=== PATIENT | female | born 1990 | race Caucasian/White ===

== ENCOUNTER 2024-07-26 01:04 | Inpatient (IN) | payer MEDICAID ==
[~2024-07-26] VITALS: Ht 149.9 cm; Wt 87.0 kg
[2024-07-26] VITALS (9 sets, daily range): BP systolic 102–179; BP diastolic 58–91; PULSE 50–71; RESP 16–22; TEMP 97.1–98.7; O2SAT 93–98
[2024-07-26 02:15] LABS: Basophils # (auto) 0.1 10 ^3/uL (0-0.2); Basophils % (auto) 0.3 % (0.0-2.0); Eosinophils # (auto) 0.1 10 ^3/uL (0-0.8); Eosinophils % (auto) 0.4 % (0.0-7.0); Hematocrit 39.6 % (36.0-46.0); Hemoglobin 13.7 g/dL (12.2-16.2); Lymphocytes # (auto) 1.2 10 ^3/uL (0.4-5.4); Lymphocytes % (auto) 7.7 % (10.0-50.0); Mean Corpuscular Hemoglobin 28.8 pg (28.0-32.0); Mean Corpuscular Hgb Conc. 34.7 g/dL (32.0-36.0); Mean Corpuscular Volume 83.2 fL (80.0-100.0); Monocytes # (auto) 0.9 10 ^3/uL (0-1.3); Monocytes % (auto) 5.5 % (0.0-12.0); Neutrophils # (auto) 13.8 10 ^3/uL (1.6-8.6); Neutrophils % (auto) 86.1 % (37.0-80.0); Platelet Count (auto) 430 10^3/uL (140-450); Red Blood Cells 4.76 10^6/uL (4.0-5.20); White Blood Cell 16.1 10^3/uL (4.4-10.8)
[2024-07-26 02:33] LABS: Alanine Aminotransferase 17 U/L (7-40); Albumin 4.8 g/dL (3.2-4.8); Alkaline Phosphatase 97 U/L (46-116); Anion Gap 11 (5-15); Aspartate Aminotransferase 14 U/L (13-40); BUN/Creatinine Ratio 10.2 (10.0-20.0); Blood Urea Nitrogen 13 mg/dL (9-23); Calcium 10.1 mg/dL (8.7-10.4); Carbon Dioxide 24 mmol/L (20-31); Chloride 102 mmol/L (98-107); Glucose 151 mg/dL (74-106); Lipase 30 U/L (12-53); Potassium 3.8 mmol/L (3.5-5.1); Sodium 137 mmol/L (136-145)
[2024-07-26 02:34] LABS: Bilirubin, Total 0.7 mg/dL (0.2-1.0)
[2024-07-26] MEDS: MORPHINE SULFATE INJ 2 MG/ml SYRG IV ONE ×2 (02:41→04:35)
[2024-07-26] MEDS: ONDANSETRON HCL 4 MG/2 ML VIAL IV ONE (02:42)
[2024-07-26 03:09] LABS: Amphetamine Screen, Urine Pos (NEGATIVE); Barbiturate Scree,Urine Neg (NEGATIVE); Benzodiazephine Screen, Urine Neg (NEGATIVE); Cannabinoid Screen, Urine Pos (NEGATIVE); Cocaine Screen, Urine Neg (NEGATIVE); Opiate Scree,Urine Neg (NEGATIVE); Phencyclidine Screen, Urine Neg (NEGATIVE)
[2024-07-26 03:17] LABS: Urine Bacteria FEW /hpf (None Seen); Urine Blood 1+ /uL (Negative); Urine Clarity Clear (Clear); Urine Color Light-Yellow (Yellow); Urine Mucus FEW (None Seen); Urine Protein, UAD Negative (Negative); Urine Squamous Epithelial Cell FEW /hpf (<5); Urine Urobilinogen Normal (Negative); Urine WBC 5 /HPF (0-5)
--- NOTE | 2024-07-26 03:48 | DVH ---
Exam: CT CT AB PEL WO CON-NO ORAL OR IV History: LLQ abd px Comparison Study: None Technique: Multidetector spiral CT of the abdomen was performed from lung bases to pubic symphysis. I maging was performed without IV contrast. Axial, coronal and sagittal multiplanar reformats were obta ined from the axial data set by the technologist. Radiation Dose : 1. Abdomen/Pelvis: CTDIvol 20.1 mGy, DLP 1119.46 mGy*cm. Findings: Evaluation of solid organs is limited due to lack of intravenous contrast use. Lung Bases: No acute or significant lung base finding. Normal heart size. No pleural or pericardial effusion. Liver: The liver is normal in size. No focal lesions. Gallbladder and Biliary Tree: Unremarkable Spleen: Unremarkable Pancreas: The pancreas is grossly normal in appearance. Adrenal Glands: Unremarkable Kidneys: Moderate right hydronephrosis and hydroureter secondary to a partially obstructing distal ur eteral calculus measuring 0.5 cm just proximal to the level of the ureterovesicular junction. The lef t kidney is normal in appearance. Bladder: Grossly unremarkable for degree of distention. Bowel: The stomach is grossly normal in appearance. Small bowel and colon are normal in caliber and d istribution. The appendix is not visualized; however, no secondary findings of acute appendicitis kvng ntified. Ascites: Absent Lymphadenopathy: No mesenteric, retroperitoneal or periportal lymphadenopathy. Abdominal Wall and Mesentery: Unremarkable. Vasculature: The visualized abdominal aorta is normal in size and caliber. Evaluation of abdominal a nd pelvic vessels is limited due to lack of intravenous contrast. Pelvic Organs: Unremarkable Musculoskeletal: No aggressive focal bony lesions, acute fractures or dislocation. IMPRESSION: 1. Moderate right hydroureteronephrosis secondary to a partially obstructing distal ureteral calculus just proximal to the level of the ureterovesicular junction. Radiation optimization: All CT scans at this facility use at least one of these dose optimization juan hniques: automated exposure control mA and/or kV adjustment per patient size (includes targeted exam s where dose is matched to clinical indication) or iterative reconstruction.
--- NOTE | 2024-07-26 03:50 | ED.PDOC ---
General HPI Comments THIS IS A 34-YEAR-OLD FEMALE BROUGHT IN BY EMS WITH CHIEF COMPLAINT ABDOMINAL PAIN. PATIENT STATES SUDDEN ONSET OF ABDOMINAL PAIN WHILE SHE WAS OUT HER FAMILY SHE PULLED OVER ON THE SIDE OF THE ROAD AND CALLED 911 SHE WAS BROUGHT IN BY EMS. PATIENT REPORTS LEFT LOWER QUADRANT ABDOMINAL PAIN 10/10 ON PAIN SCALE ALONG WITH NAUSEA AND VOMITING DESCRIBES PAIN SHARP SHOOTING RADIATING INTO HER LEFT LOWER BACK. SHE DENIES CHEST PAIN, DIFFICULTY BREATHING, SHORTNESS OF BREATH, DIARRHEA, RECENT TRAVEL OR RECENT ILL CONTACTS. Chief Complaint: Abdominal Pain Time Seen by MD: 01:34 Reviewed notes: Nurses Notes, Medications, Allergies Allergies: Coded Allergies: NO KNOWN ALLERGIES (Unverified , 07/26/24) Information Source: Patient Mode of Arrival: EMS Past Medical History PAST MEDICAL HISTORY: Denies Surgical History: Denies all surgeries PE MANAGER History: No Pertinent PE MANAGER History Family History Family History: Unknown Social History Smoker: Non-Smoker Alcohol: Denies ETOH Use Drugs: Denies Drug Use, Marijuana Constitutional: denies: chills, diaphoresis, fatigue, fever, malaise, sweats, weakness, others EENTM: denies: blurred vision, double vision, ear bleeding, ear discharge, ear drainage, ear pain, ear ringing, eye pain, eye redness, hearing loss, mouth pain, mouth swelling, nasal discharge, nose bleeding, nose congestion, nose pain, photophobia, tearing, throat pain, throat swelling, voice changes, others Respiratory: denies: cough, hemoptysis, orthopnea, SOB at rest, shortness of breath, SOB with excertion, stridor, wheezing, others Cardiovascular: denies: chest pain, dizzy spells, diaphoresis, Dyspnea on exertion, edema, irregular heart beat, left arm pain, lightheadedness, palp itations, PND, syncope, others Gastrointestinal: reports: abdominal pain, nausea, vomiting; denies: abdomen distended, blood streaked bowels, constipated, diarrhea, dysphagia, difficulty swallowing, hematemesis, melena, poor appetite, poor fluid intake, rectal bleeding, rectal pain, others Genitourinary: denies: abnormal vagina bleeding, burning, dyspareunia, dysuria, flank pain, frequency, hematuria, incontinence, pain, , vagina discharge, urgency, others Neurological: denies: dizziness, fainting, headache, left sided numbness, left sided weakness, numbness, paresthesia, pre-existing deficit, right sided numbness, right sided weakness, seizure, speech problems, tingling, tremors, weakness, others Musculoskeletal: denies: back pain, gout, joint pain, joint swelling, muscle pain, muscle stiffness, neck pain, others Integumetry: denies: bruises, change in color, change in hair/nails, dryness, laceration, lesions, lumps, rash, wounds, others Allergic/Immunocompromised: denies: Difficulty Healing, Frequent Infections, Hives, Itching, others Hematologic/Lymphatic: denies: anemia, blood clots, easy bleeding, easy bruising, swollen glands, others Endocrine: denies: excessive hunger, excessive sweating, excessive thirst, excessive urination, flushing, intolerance to cold, intolerance to heat, unexplained weight gain, unexplained weight loss, others Psychiatric: denies: anxiety, bipolar disorder, depression, hopeless, panic disorder, schizophrenia, sleepless, suicidal, others Physical Exam General Appearance: No Apparent Distress, Normal HEENT: Normal ENT Inspection, Pharynx Normal Neck: Full Range of Motion, Non-Tender Respiratory: Chest Non-Tender, Lungs Clear, No Accessory Muscle Use, No Respiratory Distress, Normal Breath Sounds Cardiovascular: No Edema, No JVD, No Murmur, No Gallop, Normal Peripheral Pulses, Regular Rate/Rhythm Breast Exam: Deferred Gastrointestinal: No Organomegaly, No Pulsatile Mass, Normal Bowel Sounds, Soft, Tenderness (MODERATE TENDERNESS PALPATED LEFT LOWER QUADRANT ABDOMEN WITHOUT REBOUND TENDERNESS) Genitalia: Deferred Pelvic: Deferred Rectal: Deferred Extremities: No calf tenderness, Normal capillary refill, Normal inspection, Normal range of motion, Non-tender, No pedal edema Musculoskeletal : Apperance: Normal Neurologic: Alert, retail sales merchandiser development II-XII nml as Tested, No Motor Deficits, Normal Affect, Normal Mood, No Sensory Deficits Cerebellar Function: Normal Reflexes: Normal Skin: Dry, Normal Color, Warm Lymphatic: No Adenopathy Was a procedure done? Was a procedure done?: No Differential Diagnosis Kidney stone (Female): Appendicitis, Bowel obstruction, Cholelithiasis, Pancreatitis, Urolithiasis X-Ray, Labs, Meds, VS Vital Signs Date Time Temp Pulse Resp B/P (MAP) Pulse Ox O2 Delivery O2 Flow Rate FiO2 07/26/24 03:26 60 13 141/73 07/26/24 02:41 78 12 153/97 07/26/24 02:20 60 22 100 Room Air 07/26/24 02:20 98.3 60 22 168/95 (119) 100 98.3 07/26/24 01:04 98.3 60 22 168/95 (119) 100 98.3 Lab Test 07/26/24 02:30 07/26/24 02:04 Range/Units Urine Color Light-yellow Yellow Urine Clarity Clear Clear Urine pH 8.0 5.0-9.0 Urine Specific [place] 1.020 1.001-1.035 Urine Protein Negative Negative Urine Ketones 3+ H Negative Urine Blood 1+ H Negative /uL Urine Nitrite Negative Negative Urine Bilirubin Negative Negative Urine Urobilinogen Normal Negative mg/dL Urine Leukocyte Esterase 2+ Negative /uL Urine RBC 22 0 - 4 /hpf Urine Microscopic WBC 5 0-5 /HPF Urine Squamous Epithelial Cells Few <5 /hpf Urine Bacteria Few H None Seen /hpf Urine Mucus Few None Seen Urine Glucose Normal Normal mg/dL Urine Test Negative Negative Urine Opiates Screen Neg NEGATIVE Urine Fentanyl Screen Neg NEGATIVE Urine Barbiturates Screen Neg NEGATIVE Urine Phencyclidine Screen Neg NEGATIVE Urine Amphetamines Screen Pos NEGATIVE Urine Benzodiazepines Screen Neg NEGATIVE Urine Cocaine Screen Neg NEGATIVE Urine Cannabinoids Screen Pos NEGATIVE White Blood Count 16.1 H 4.4-10.8 10^3/uL Red Blood Count 4.76 4.0-5.20 10^6/uL Hemoglobin 13.7 12.2-16.2 g/dL Hematocrit 39.6 36.0-46.0 % Mean Corpuscular Volume 83.2 80.0-100.0 fL Mean Corpuscular Hemoglobin 28.8 28.0-32.0 pg Mean Corpuscular Hemoglobin Concent 34.7 32.0-36.0 g/dL Red Cell Distribution Width 16.0 H 11.8-14.3 % Platelet Count 430 140-450 10^3/uL Mean Platelet Volume 7.2 6.9-10.8 fL Neutrophils (%) (Auto) 86.1 H 37.0-80.0 % Lymphocytes (%) (Auto) 7.7 L 10.0-50.0 % Monocytes (%) (Auto) 5.5 0.0-12.0 % Eosinophils (%) (Auto) 0.4 0.0-7.0 % Basophils (%) (Auto) 0.3 0.0-2.0 % Neutrophils # (Auto) 13.8 H 1.6-8.6 10 ^3/uL Lymphocytes # (Auto) 1.2 0.4-5.4 10 ^3/uL Monocytes # (Auto) 0.9 0-1.3 10 ^3/uL Eosinophils # (Auto) 0.1 0-0.8 10 ^3/uL Basophils # (Auto) 0.1 0-0.2 10 ^3/uL Nucleated Red Blood Cells 0.0 % Sodium Level 137 136-145 mmol/L Potassium Level 3.8 3.5-5.1 mmol/L Chloride Level 102 98-107 mmol/L Carbon Dioxide Level 24 20-31 mmol/L Anion Gap 11 5-15 Blood Urea Nitrogen 13 9-23 mg/dL Creatinine 1.27 H 0.550-1.02 mg/dL Glomerular Filtration Rate Calc 57 >90 mL/min BUN/Creatinine Ratio 10.2 10.0-20.0 Serum Glucose 151 H 74-106 mg/dL Calcium Level 10.1 8.7-10.4 mg/dL Total Bilirubin 0.7 0.2-1.0 mg/dL Aspartate Amino Transferase (AST) 14 13-40 U/L Alanine Aminotransferase (ALT) 17 7-40 U/L Alkaline Phosphatase 97 46-116 U/L Total Protein 8.0 5.7-8.2 g/dL Albumin 4.8 3.2-4.8 g/dL Lipase 30 12-53 U/L Current Medications Medications (Trade) Dose Ordered Sig/Kevin Route Start Time Stop Time Status Last Admin Ondansetron HCl (Zofran) 4 mg ONCE ONCE IV 07/26/24 02:15 07/26/24 02:16 DC 07/26/24 02:42 Morphine Sulfate 1 mg ONCE ONCE IV 07/26/24 02:30 07/26/24 02:31 DC 07/26/24 02:41 Sodium Chloride 1,000 ml @ 1,000 mls/hr Q1H ONCE IV 07/26/24 04:00 07/26/24 04:59 DC 07/26/24 03:53 Ceftriaxone Sodium 50 ml @ 100 mls/hr ONCE ONCE IV 07/26/24 04:00 07/26/24 04:29 DC 07/26/24 04:00 X-Ray, Labs, Meds, VS Comment IMAGING: IMPRESSION: 1. Moderate right hydroureteronephrosis secondary to a partially obstructing distal ureteral calculus just proximal to the level of the ureterovesicular junction. LABS: CBC CMP LIPASE UA UDS MEDICATIONS: MORPHINE 1 MG IV PUSH NORMAL SALINE 1000 ML BOLUS ZOFRAN 4 MG IV PUSH Rocephin IV piggyback Tamsulosin PLAN OF CARE: Patient placed for hospitalist admission for renal consult keena Time of 1ST Reevaluation: 03:48 Reevaluation 1ST: Unchanged Patient Education/Counseling: Diagnosis, Treatment, Prognosis, Need For Follow Up Family Education/Counseling: No Family Present Departure 1 Departure Time of Disposition: 03:58 Impression: Primary Impression: Hydronephrosis with obstructing calculus Additional Impression: Leukocytosis Qualified Codes: D72.829 - Elevated white blood cell count, unspecified Disposition: 09 ADMITTED INPATIENT Condition: Stable Critical Care Note Critical Care Time?: No Stability Stability form required: MICHELLE Blackmon Jul 26, 2024 03:50
[2024-07-26] MEDS: SODIUM CHLORIDE 0.9% 1,000 ML IV ONE (03:53)
[2024-07-26] MEDS: cefTRIAXone 1GM/50ML D5W 50 ML IV ONE (04:00)
[2024-07-26] MEDS ORDERED: KETOROLAC TROMETH 30 MG/ML 1ML VIAL IV ONE (04:00)
[2024-07-26] MEDS ORDERED: ONDANSETRON HCL 4 MG/2 ML VIAL IV PRN (04:15)
[2024-07-26] MEDS ORDERED: TEMAZEPAM 15 MG CAP PO PRN (04:15)
--- NOTE | 2024-07-26 04:22 | DVHHP2 ---
History of Present Illness Reason for Visit: Flank pain History of Present Illness 34-year-old female presents for evaluation of flank pain. Patient endorses a one day history of right sharp nonradiating flank pain with associated nausea and vomiting. She also reports chills. No dysuria or hematuria. No other ac addie complaints reported. Past Medical History Denies Past Surgical History Denies Family History Noncontributory Smoke: No ALCOHOL: occassional Drugs: Marijuana, Other (Amphetamine) Review of Systems Review of Systems Review of systems are currently negative otherwise addressed in HPI. Allergies: Coded Allergies: NO KNOWN ALLERGIES (Unverified , 07/26/24) Medications Current Medications Medications Dose Ordered Sig/Kevin Route Start Time Stop Time Status Last Admin Dose Admin Ceftriaxone Sodium 50 ml @ 100 mls/hr DAILY@09 IV 07/26/24 09:00 Acetaminophen/ Hydrocodone Bitart 1 tab Q4HP PRN PO 07/26/24 04:15 Temazepam 15 mg QHSP PRN PO 07/26/24 04:15 Ondansetron HCl 4 mg Q4HP PRN IV 07/26/24 04:15 Acetaminophen 650 mg Q6HP PRN PO 07/26/24 04:15 Morphine Sulfate 2 mg Q6HPRN PRN IV 07/26/24 04:15 Exam Vital Signs Vital Signs Date Time Temp Pulse Resp B/P (MAP) Pulse Ox O2 Delivery O2 Flow Rate FiO2 07/26/24 03:26 60 13 141/73 07/26/24 02:20 100 Room Air 07/26/24 02:20 98.3 98.3 Exam Gen: 34-year-old female in mild distress. Skin: Warm, dry, normal color and texture, no rash. HEENT: Normocephalic atraumatic, mucous membranes moist and pink. Neck: Cervical and supraclavicular nodes normal without enlargement, trachea is midline, thyroid gland is normal without masses. Pulmonary: Clear to auscultation and percussion bilaterally. Cardiac: Regular rate and rhythm. No murmur Abdomen: Soft, right flank tenderness, nondistended, bowel sounds present all 4 quadrants, no guarding, no rigidity, no organomegaly. Extremities: No cyanosis, clubbing, no edema Neuro: Cranial nerves II through XII grossly intact, normal affect and speech, no focal motor deficits. Labs/Xrays ORDERING PHYSICIAN: MICHELLE ALAN PROCEDURE(s): ABPL - CT AB PEL WO CON-NO ORAL OR IV REASON: LLQ abd px ORDER NUMBER(s): [id number], ACCESSION NUMBER(s): [id number] Exam: CT CT AB PEL WO CON-NO ORAL OR IV History: LLQ abd px Comparison Study: None Technique: Multidetector spiral CT of the abdomen was performed from lung bases to pubic symphysis. Imaging was performed without IV contrast. Axial, coronal and sagittal multiplanar reformats were obtained from the axial data set by the technologist. Radiation Dose : 1. Abdomen/Pelvis: CTDIvol 20.1 mGy, DLP 1119.46 mGy*cm. Findings: Evaluation of solid organs is limited due to lack of intravenous contrast use. Lung Bases: No acute or significant lung base finding. Normal heart size. No pleural or pericardial effusion. Liver: The liver is normal in size. No focal lesions. Gallbladder and Biliary Tree: Unremarkable Spleen: Unremarkable Pancreas: The pancreas is grossly normal in appearance. Adrenal Glands: Unremarkable Kidneys: Moderate right hydronephrosis and hydroureter secondary to a partially obstructing distal ureteral calculus measuring 0.5 cm just proximal to the level of the ureterovesicular junction. The left kidney is normal in appearance. Bladder: Grossly unremarkable for degree of distention. Bowel: The stomach is grossly normal in appearance. Small bowel and colon are normal in caliber and distribution. The appendix is not visualized; however, no secondary findings of acute appendicitis identified. Ascites: Absent Lymphadenopathy: No mesenteric, retroperitoneal or periportal lymphadenopathy. Abdominal Wall and Mesentery: Unremarkable. Vasculature: The visualized abdominal aorta is normal in size and caliber. Evaluation of abdominal and pelvic vessels is limited due to lack of intravenous contrast. Pelvic Organs: Unremarkable Musculoskeletal: No aggressive focal bony lesions, acute fractures or dislocation. IMPRESSION: 1. Moderate right hydroureteronephrosis secondary to a partially obstructing distal ureteral calculus just proximal to the level of the ureterovesicular junction. Radiation optimization: All CT scans at this facility use at least one of these dose optimization techniques: automated exposure control mA and/or kV adjustment per patient size (includes targeted exams where dose is matched to clinical indication) or iterative reconstruction. Labs Test 07/26/24 02:30 07/26/24 02:04 Range/Units Urine Color Light-yellow Yellow Urine Clarity Clear Clear Urine pH 8.0 5.0-9.0 Urine Specific [place] 1.020 1.001-1.035 Urine Protein Negative Negative Urine Ketones 3+ H Negative Urine Blood 1+ H Negative /uL Urine Nitrite Negative Negative Urine Bilirubin Negative Negative Urine Urobilinogen Normal Negative mg/dL Urine Leukocyte Esterase 2+ Negative /uL Urine RBC 22 0 - 4 /hpf Urine Microscopic WBC 5 0-5 /HPF Urine Squamous Epithelial Cells Few <5 /hpf Urine Bacteria Few H None Seen /hpf Urine Mucus Few None Seen Urine Glucose Normal Normal mg/dL Urine Test Negative Negative Urine Opiates Screen Neg NEGATIVE Urine Fentanyl Screen Neg NEGATIVE Urine Barbiturates Screen Neg NEGATIVE Urine Phencyclidine Screen Neg NEGATIVE Urine Amphetamines Screen Pos NEGATIVE Urine Benzodiazepines Screen Neg NEGATIVE Urine Cocaine Screen Neg NEGATIVE Urine Cannabinoids Screen Pos NEGATIVE White Blood Count 16.1 H 4.4-10.8 10^3/uL Red Blood Count 4.76 4.0-5.20 10^6/uL Hemoglobin 13.7 12.2-16.2 g/dL Hematocrit 39.6 36.0-46.0 % Mean Corpuscular Volume 83.2 80.0-100.0 fL Mean Corpuscular Hemoglobin 28.8 28.0-32.0 pg Mean Corpuscular Hemoglobin Concent 34.7 32.0-36.0 g/dL Red Cell Distribution Width 16.0 H 11.8-14.3 % Platelet Count 430 140-450 10^3/uL Mean Platelet Volume 7.2 6.9-10.8 fL Neutrophils (%) (Auto) 86.1 H 37.0-80.0 % Lymphocytes (%) (Auto) 7.7 L 10.0-50.0 % Monocytes (%) (Auto) 5.5 0.0-12.0 % Eosinophils (%) (Auto) 0.4 0.0-7.0 % Basophils (%) (Auto) 0.3 0.0-2.0 % Neutrophils # (Auto) 13.8 H 1.6-8.6 10 ^3/uL Lymphocytes # (Auto) 1.2 0.4-5.4 10 ^3/uL Monocytes # (Auto) 0.9 0-1.3 10 ^3/uL Eosinophils # (Auto) 0.1 0-0.8 10 ^3/uL Basophils # (Auto) 0.1 0-0.2 10 ^3/uL Nucleated Red Blood Cells 0.0 % Sodium Level 137 136-145 mmol/L Potassium Level 3.8 3.5-5.1 mmol/L Chloride Level 102 98-107 mmol/L Carbon Dioxide Level 24 20-31 mmol/L Anion Gap 11 5-15 Blood Urea Nitrogen 13 9-23 mg/dL Creatinine 1.27 H 0.550-1.02 mg/dL Glomerular Filtration Rate Calc 57 >90 mL/min BUN/Creatinine Ratio 10.2 10.0-20.0 Serum Glucose 151 H 74-106 mg/dL Calcium Level 10.1 8.7-10.4 mg/dL Total Bilirubin 0.7 0.2-1.0 mg/dL Aspartate Amino Transferase (AST) 14 13-40 U/L Alanine Aminotransferase (ALT) 17 7-40 U/L Alkaline Phosphatase 97 46-116 U/L Total Protein 8.0 5.7-8.2 g/dL Albumin 4.8 3.2-4.8 g/dL Lipase 30 12-53 U/L Assessment/Plan Assessment/Plan Assessment Nephrolithiasis Hydronephrosis Renal colic Urinary tract infection Polysubstance abuse Leukocytosis Acute kidney injury Admit the patient to [facility] to the hospitalist Urology consultation Pain management Flomax/normal saline Rocephin Continue treatment per orders. Plan discussed with: Patient My Orders Orders - RHONDA CEE AGACNP Procedure Category Date Status Time Ceftriaxone 1gm/50ml PHA 07/26/24 In Process D5w (Rocephin) 09:00 * Urology Consult CONS 07/26/24 Transmitted 04:05 Basic Metabolic Panel LAB 07/26/24 Logged 04:05 Admit ADMIT 07/26/24 Transmitted 04:05 Hydrocodone-Acet PHA 07/26/24 In Process 5/325mg Tab ([place] 04:15 Temazepam (Restoril) PHA 07/26/24 In Process 04:15 Ondansetron Hcl PHA 07/26/24 In Process (Zofran) 04:15 Complete Blood Count LAB 07/27/24 Verified 04:00 Condition: Stable MAXI 4/6/25 In Process 04:05 Acetaminophen Tablet PHA 07/26/24 In Process (Tylenol Tablet) 04:15 Bedrest With Bathroom MAXI 07/26/24 In Process Privileg 04:05 Morphine Sulfate PHA 07/26/24 In Process Injection 04:15 Date of Service: Jul 26, 2024 Billing Provider: RHONDA CEE Common Visit Codes: [id number] INP/OBS CARE (MOD) RHONDA CEE Jul 26, 2024 04:22
[2024-07-26] MEDS: TAMSULOSIN HYDROCHLORIDE 0.4 MG CAP PO ONE (04:27)
[2024-07-26 05:26] LABS: Anion Gap 11 (5-15); Carbon Dioxide 23 mmol/L (20-31); Chloride 103 mmol/L (98-107); Potassium 3.7 mmol/L (3.5-5.1); Sodium 137 mmol/L (136-145)
[2024-07-26 05:27] LABS: Calcium 9.6 mg/dL (8.7-10.4)
[2024-07-26 05:32] LABS: BUN/Creatinine Ratio 9.6 (10.0-20.0); Blood Urea Nitrogen 12 mg/dL (9-23); Glucose 129 mg/dL (74-106)
[2024-07-26] MEDS: cefTRIAXone 1GM/50ML D5W 50 ML IV SCH (08:01)
[2024-07-26] MEDS: MORPHINE SULFATE INJ 2 MG/ml SYRG IV PRN (08:45)
[2024-07-26] MEDS: SODIUM CHLORIDE 0.9% 1,000 ML IV SCH (13:15)
--- NOTE | 2024-07-26 15:40 | DVHPN2 ---
Subjective I am assuming the care of the patient from today onwards who was under the care of the hospitalist team. This is a 34-year-old female with a no significant past medical history presented to the hospital with a right flank pain found to have right obstructive uropathy. 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 Medications Current Medications Medications Dose Ordered Sig/Kevin Route Start Time Stop Time Status Last Admin Dose Admin Ceftriaxone Sodium 50 ml @ 100 mls/hr DAILY@09 IV 07/26/24 09:00 07/26/24 08:01 100 MLS/HR Acetaminophen/ Hydrocodone Bitart 1 tab Q4HP PRN PO 07/26/24 04:15 Temazepam 15 mg QHSP PRN PO 07/26/24 04:15 Ondansetron HCl 4 mg Q4HP PRN IV 07/26/24 04:15 Acetaminophen 650 mg Q6HP PRN PO 07/26/24 04:15 Morphine Sulfate 2 mg Q6HPRN PRN IV 07/26/24 04:15 07/26/24 08:45 2 MG Sodium Chloride 1,000 ml @ 125 mls/hr Q8H IV 07/26/24 13:15 07/26/24 13:15 125 MLS/HR Laboratory Results Laboratory Tests 07/26/24 02:04 07/26/24 04:40 Chemistry Test 07/26/24 02:04 07/26/24 04:40 Albumin 4.8 g/dL (3.2-4.8) Calcium Level 10.1 mg/dL (8.7-10.4) 9.6 mg/dL (8.7-10.4) Total Protein 8.0 g/dL (5.7-8.2) Lipid panel Test 07/26/24 02:04 Lipase 30 U/L (12-53) LFT Test 07/26/24 02:04 Alanine Aminotransferase (ALT) 17 U/L (7-40) Alkaline Phosphatase 97 U/L (46-116) Aspartate Amino Transferase (AST) 14 U/L (13-40) Total Bilirubin 0.7 mg/dL (0.2-1.0) Urinalysis Test 07/26/24 02:30 Urine Color Light-yellow (Yellow) Urine Clarity Clear (Clear) Urine pH 8.0 (5.0-9.0) Urine Specific [place] 1.020 (1.001-1.035) Urine Protein Negative (Negative) Urine Ketones 3+ (Negative) H Urine Blood 1+ /uL (Negative) H Urine Nitrite Negative (Negative) Urine Bilirubin Negative (Negative) Urine Urobilinogen Normal mg/dL (Negative) Urine Leukocyte Esterase 2+ /uL (Negative) Urine RBC 22 /hpf (0 - 4) Urine Microscopic WBC 5 /HPF (0-5) Urine Squamous Epithelial Cells Few /hpf (<5) Urine Bacteria Few /hpf (None Seen) H Urine Mucus Few (None Seen) Urine Glucose Normal mg/dL (Normal) Urine Test Negative (Negative) Assessment/Plan Assessment/Plan 34-year-old female who initially presented to the hospital with a fevers chills nausea and vomiting and right flank pain found to have 1. Sepsis secondary to right pyelonephritis 2. Acute pyelonephritis right side 3. Right obstructive uropathy with the ureteric stone with hydronephrosis 4. Leukocytosis likely reactive secondary to sepsis 5. Chronic marijuana use 6. Positive amphetamine and 7. Acute kidney injury suspected secondary to vasomotor nephropathy 8. Morbid obesity classIII -IV fluids, encourage liquids, Flomax-, urology consultation Follow up urine culture, IV antibiotics - Plan discussed with: Patient My Orders Orders - JAILYN ORTIZ MD Procedure Category Date Status Time Regular Diet DIET 07/26/24 Transmitted Lunch Sodium Chloride 0.9% PHA 07/26/24 In Process 13:15 Date of Service: Jul 26, 2024 Billing Provider: JAILYN ORTIZ MD Common Visit Codes: [id number] INP/OBS CARE(HIGH) JAILYN ORTIZ MD Jul 26, 2024 15:40
[2024-07-26] MEDS: HYDROcodone-ACET 5/325MG TAB PO PRN (21:46)
[2024-07-27] VITALS (8 sets, daily range): BP systolic 71–139; BP diastolic 69–99; PULSE 68–99; RESP 16–21; TEMP 97.7–98.6; O2SAT 95–99
[2024-07-27 07:05] LABS: Basophils # (auto) 0 10 ^3/uL (0-0.2); Basophils % (auto) 0.3 % (0.0-2.0); Eosinophils # (auto) 0.1 10 ^3/uL (0-0.8); Eosinophils % (auto) 1.2 % (0.0-7.0); Hematocrit 39.4 % (36.0-46.0); Hemoglobin 13.4 g/dL (12.2-16.2); Lymphocytes # (auto) 1.3 10 ^3/uL (0.4-5.4); Lymphocytes % (auto) 13.8 % (10.0-50.0); Mean Corpuscular Hemoglobin 28.9 pg (28.0-32.0); Mean Corpuscular Volume 85.1 fL (80.0-100.0); Monocytes # (auto) 1.1 10 ^3/uL (0-1.3); Neutrophils # (auto) 6.9 10 ^3/uL (1.6-8.6); Neutrophils % (auto) 72.7 % (37.0-80.0); Nucleated Red Blood Cells % 0.1 %; Platelet Count (auto) 353 10^3/uL (140-450); Red Blood Cells 4.63 10^6/uL (4.0-5.20); White Blood Cell 9.5 10^3/uL (4.4-10.8)
[2024-07-27] MEDS ORDERED: KETOROLAC TROMETH 30 MG/ML 1ML VIAL IV PRN (07:45)
--- NOTE | 2024-07-27 09:57 | DVHPN2 ---
Subjective The patient is seen and examined at bedside. No complaint today. Reviewed: Care Plan Changes from previous H/P or p: No Changes Objective Vitals Vital Signs Date Time Temp Pulse Resp B/P (MAP) Pulse Ox O2 Delivery O2 Flow Rate FiO2 07/27/24 09:00 98.3 72 16 122/77 (92) 96 98.3 07/27/24 07:54 Room Air* 0 21 Intake/Output Intake and Output 07/27/24 07:00 Intake Total 3200 ml Balance 3200 ml Intake Oral 1400 ml IV Total 1800 ml # Voids 6 General Appearance: Alert, Cooperative, No acute distress HEENT: Atraumatic, PERRLA, EOMI, Mucous membr. moist/pink Neck: Supple Cardiovascular: Regular rate, Normal S1, Normal S2, No murmurs, Gallops, Rubs Abdomen: Normal bowel sounds, Soft, No tenderness Neuro: Cranial nerves 3-12 NL Psych/Mental Status: Mental status NL Medications Current Medications Medications Dose Ordered Sig/Kevin Route Start Time Stop Time Status Last Admin Dose Admin Ceftriaxone Sodium 50 ml @ 100 mls/hr DAILY@09 IV 07/26/24 09:00 07/27/24 08:08 100 MLS/HR Acetaminophen/ Hydrocodone Bitart 1 tab Q4HP PRN PO 07/26/24 04:15 07/26/24 21:46 1 TAB Temazepam 15 mg QHSP PRN PO 07/26/24 04:15 Ondansetron HCl 4 mg Q4HP PRN IV 07/26/24 04:15 Acetaminophen 650 mg Q6HP PRN PO 07/26/24 04:15 Morphine Sulfate 2 mg Q6HPRN PRN IV 07/26/24 04:15 07/26/24 20:10 2 MG Sodium Chloride 1,000 ml @ 125 mls/hr Q8H IV 07/26/24 13:15 07/27/24 05:40 125 MLS/HR Tamsulosin HCl 0.4 mg QPM PO 07/27/24 18:00 UNV Ketorolac Tromethamine 30 mg Q6HPRN PRN IV 07/27/24 07:45 08/01/24 07:44 UNV Laboratory Results Laboratory Tests 07/26/24 04:40 07/27/24 05:34 Urinalysis Test 07/26/24 02:30 Urine Color Light-yellow (Yellow) Urine Clarity Clear (Clear) Urine pH 8.0 (5.0-9.0) Urine Specific [place] 1.020 (1.001-1.035) Urine Protein Negative (Negative) Urine Ketones 3+ (Negative) H Urine Blood 1+ /uL (Negative) H Urine Nitrite Negative (Negative) Urine Bilirubin Negative (Negative) Urine Urobilinogen Normal mg/dL (Negative) Urine Leukocyte Esterase 2+ /uL (Negative) Urine RBC 22 /hpf (0 - 4) Urine Microscopic WBC 5 /HPF (0-5) Urine Squamous Epithelial Cells Few /hpf (<5) Urine Bacteria Few /hpf (None Seen) H Urine Mucus Few (None Seen) Urine Glucose Normal mg/dL (Normal) Urine Test Negative (Negative) Labs and/or images reviewed: Labs reviewed by me Assessment/Plan Assessment/Plan 34-year-old female who initially presented to the hospital with a fevers chills nausea and vomiting and right flank pain found to have 1. Sepsis secondary to right pyelonephritis 2. Acute pyelonephritis right side 3. Right obstructive uropathy with the ureteric stone with hydronephrosis 4. Leukocytosis likely reactive secondary to sepsis 5. Chronic marijuana use 6. Positive amphetamine and 7. Acute kidney injury suspected secondary to vasomotor nephropathy 8. Morbid obesity classIII -IV fluids, encourage liquids, Flomax-, urology consultation Follow up urine culture, IV antibiotics Continuing current management This medical document was created using an electronic medical record system with [employer] direct computerized dictation system. Although this document has been carefully reviewed, there may still be some phonetic and typographical errors. These areas are purely typographical due to imperfections of the software programs, and do not reflect any compromise in the patient's medical care. Plan discussed with: Patient, Other (Rn) Date of Service: Jul 27, 2024 Billing Provider: ROLAN CAREY MD Common Visit Codes: [id number] INP/OBS CARE(HIGH) ROLAN CAREY MD Jul 27, 2024 09:57
--- NOTE | 2024-07-27 10:52 | DVHINCON2 ---
Date of service: Jul 27, 2024 Referring Physician hospitalist Reason for Consultation hydronephrosis History of Present Illness History Source: Patient, RN Notes, MD Notes Exam Limitations: No limitations HPI 34-year-old female presents for evaluation of flank pain. Patient endorses a one day history of right sharp nonradiating flank pain with associated nausea and vomiting. She also reports chills. No dysuria or hematuria. No other acute complaints reported. Home Meds No Active Prescriptions or Reported Meds Past Medical History Patient Family History: Patient reports no known family medical history. Drugs: Marijuana, Amphetimines Review of Systems Genitourinary: Pain H&P Exam Vital Signs Vital Signs Date Time Temp Pulse Resp B/P (MAP) Pulse Ox O2 Delivery O2 Flow Rate FiO2 07/27/24 09:00 98.3 72 16 122/77 (92) 96 98.3 07/27/24 07:54 Room Air* 0 21 Labs/Xrays [place] [id number] Ph: [phone] DIAGNOSTIC IMAGING Diagnostic Imaging Report : [id number] Signed PATIENT: NOAH EID ACCT: [id number] UNIT: [id number] : 1990 LOC: ER ROOM / BED: / AGE / SEX: 34 / F ADM STATUS: REG ER SERVICE 0135 ORDERING PHYSICIAN: MICHELLE ALAN PROCEDURE(s): ABPL - CT AB PEL WO CON-NO ORAL OR IV REASON: LLQ abd px ORDER NUMBER(s): [id number], ACCESSION NUMBER(s): [id number] Exam: CT CT AB PEL WO CON-NO ORAL OR IV History: LLQ abd px Comparison Study: None Technique: Multidetector spiral CT of the abdomen was performed from lung bases to pubic symphysis. Imaging was performed without IV contrast. Axial, coronal and sagittal multiplanar reformats were obtained from the axial data set by the technologist. Radiation Dose : 1. Abdomen/Pelvis: CTDIvol 20.1 mGy, DLP 1119.46 mGy*cm. Findings: Evaluation of solid organs is limited due to lack of intravenous contrast use. Lung Bases: No acute or significant lung base finding. Normal heart size. No pleural or pericardial effusion. Liver: The liver is normal in size. No focal lesions. Gallbladder and Biliary Tree: Unremarkable Spleen: Unremarkable Pancreas: The pancreas is grossly normal in appearance. Adrenal Glands: Unremarkable Kidneys: Moderate right hydronephrosis and hydroureter secondary to a partially obstructing distal ureteral calculus measuring 0.5 cm just proximal to the level of the ureterovesicular junction. The left kidney is normal in appearance. Bladder: Grossly unremarkable for degree of distention. Bowel: The stomach is grossly normal in appearance. Small bowel and colon are normal in caliber and distribution. The appendix is not visualized; however, no secondary findings of acute appendicitis identified. Ascites: Absent Lymphadenopathy: No mesenteric, retroperitoneal or periportal lymphadenopathy. Abdominal Wall and Mesentery: Unremarkable. Vasculature: The visualized abdominal aorta is normal in size and caliber. Evaluation of abdominal and pelvic vessels is limited due to lack of intravenous contrast. Pelvic Organs: Unremarkable Musculoskeletal: No aggressive focal bony lesions, acute fractures or dislocation. IMPRESSION: 1. Moderate right hydroureteronephrosis secondary to a partially obstructing distal ureteral calculus just proximal to the level of the ureterovesicular junction. Radiation optimization: All CT scans at this facility use at least one of these dose optimization techniques: automated exposure control mA and/or kV adjustment per patient size (includes targeted exams where dose is matched to clinical indication) or iterative reconstruction. ATED BY: NIKOLAI CERVANTES MD DICTATED DATE/TIME: 07/26/24344 SIGNED BY: NIKOLAI CERVANTES MD SIGNED DATE/TIME: 07/26/24344 CC: Labs Test 07/27/24 05:34 07/26/24 04:40 07/26/24 02:30 07/26/24 02:04 Range/Units White Blood Count 9.5 # 4.4-10.8 10^3/uL Red Blood Count 4.63 4.0-5.20 10^6/uL Hemoglobin 13.4 12.2-16.2 g/dL Hematocrit 39.4 36.0-46.0 % Mean Corpuscular Volume 85.1 80.0-100.0 fL Mean Corpuscular Hemoglobin 28.9 28.0-32.0 pg Mean Corpuscular Hemoglobin Concent 34.0 32.0-36.0 g/dL Red Cell Distribution Width 16.0 H 11.8-14.3 % Platelet Count 353 140-450 10^3/uL Mean Platelet Volume 7.4 6.9-10.8 fL Neutrophils (%) (Auto) 72.7 37.0-80.0 % Lymphocytes (%) (Auto) 13.8 10.0-50.0 % Monocytes (%) (Auto) 12.0 0.0-12.0 % Eosinophils (%) (Auto) 1.2 0.0-7.0 % Basophils (%) (Auto) 0.3 0.0-2.0 % Neutrophils # (Auto) 6.9 1.6-8.6 10 ^3/uL Lymphocytes # (Auto) 1.3 0.4-5.4 10 ^3/uL Monocytes # (Auto) 1.1 0-1.3 10 ^3/uL Eosinophils # (Auto) 0.1 0-0.8 10 ^3/uL Basophils # (Auto) 0 0-0.2 10 ^3/uL Nucleated Red Blood Cells 0.1 % Sodium Level 137 136-145 mmol/L Potassium Level 3.7 3.5-5.1 mmol/L Chloride Level 103 98-107 mmol/L Carbon Dioxide Level 23 20-31 mmol/L Anion Gap 11 5-15 Blood Urea Nitrogen 12 9-23 mg/dL Creatinine 1.25 H 0.550-1.02 mg/dL Glomerular Filtration Rate Calc 58 >90 mL/min BUN/Creatinine Ratio 9.6 L 10.0-20.0 Serum Glucose 129 H 74-106 mg/dL Calcium Level 9.6 8.7-10.4 mg/dL Urine Color Light-yellow Yellow Urine Clarity Clear Clear Urine pH 8.0 5.0-9.0 Urine Specific [place] 1.020 1.001-1.035 Urine Protein Negative Negative Urine Ketones 3+ H Negative Urine Blood 1+ H Negative /uL Urine Nitrite Negative Negative Urine Bilirubin Negative Negative Urine Urobilinogen Normal Negative mg/dL Urine Leukocyte Esterase 2+ Negative /uL Urine RBC 22 0 - 4 /hpf Urine Microscopic WBC 5 0-5 /HPF Urine Squamous Epithelial Cells Few <5 /hpf Urine Bacteria Few H None Seen /hpf Urine Mucus Few None Seen Urine Glucose Normal Normal mg/dL Urine Test Negative Negative Urine Opiates Screen Neg NEGATIVE Urine Fentanyl Screen Neg NEGATIVE Urine Barbiturates Screen Neg NEGATIVE Urine Phencyclidine Screen Neg NEGATIVE Urine Amphetamines Screen Pos NEGATIVE Urine Benzodiazepines Screen Neg NEGATIVE Urine Cocaine Screen Neg NEGATIVE Urine Cannabinoids Screen Pos NEGATIVE Total Bilirubin 0.7 0.2-1.0 mg/dL Aspartate Amino Transferase (AST) 14 13-40 U/L Alanine Aminotransferase (ALT) 17 7-40 U/L Alkaline Phosphatase 97 46-116 U/L Total Protein 8.0 5.7-8.2 g/dL Albumin 4.8 3.2-4.8 g/dL Lipase 30 12-53 U/L Assessment/Plan Problem List: (1) Leukocytosis (2) Hydronephrosis with obstructing calculus Plan expulsive measures aggressive fluids strain urine pain meds prn Plan discussed with: Patient, Other JOHN SPENCE SMOG TECHNICIAN Jul 27, 2024 10:52
--- NOTE | 2024-07-27 11:52 | DVH ---
US KIDNEY HISTORY: hydronephrosis, check ureteral jets COMPARISON: None TECHNIQUE: Transverse and longitudinal grayscale and color Doppler images were obtained of the kidney s and bladder. FINDINGS: Right kidney: Size: 12.0 cm Cortical thickness: Normal Echogenicity: Normal Stones: None Masses: None Hydronephrosis: Yes Ureters: Not well visualized. Other: None Left kidney: Size: 9.3 cm Cortical thickness: Normal Echogenicity: Normal Stones: None Masses: None Hydronephrosis: None Ureters: Not well visualized. Other: None Bladder: Normal Other: None. IMPRESSION: Right hydronephrosis. Ureteral jets seen.
[2024-07-27] MEDS: TAMSULOSIN HYDROCHLORIDE 0.4 MG CAP PO SCH (19:29)
[2024-07-28] VITALS (8 sets, daily range): BP systolic 94–139; BP diastolic 61–82; PULSE 60–63; RESP 16–19; TEMP 97.5–98.2; O2SAT 93–97
--- NOTE | 2024-07-28 11:07 | DVHPN2 ---
Subjective The patient is seen and examined at bedside. No complaint today. Reviewed: Care Plan Changes from previous H/P or p: No Changes Objective Vitals Vital Signs Date Time Temp Pulse Resp B/P (MAP) Pulse Ox O2 Delivery O2 Flow Rate FiO2 07/28/24 09:00 97.5 60 17 120/71 (87) 97 97.5 07/28/24 07:52 Room Air* 0 21 Intake/Output Intake and Output 07/28/24 07:00 Intake Total 2950 ml Balance 2950 ml Intake Oral 1900 ml IV Total 1050 ml # Voids 7 General Appearance: Alert, Cooperative, No acute distress HEENT: Atraumatic, PERRLA, EOMI, Mucous membr. moist/pink Neck: Supple Cardiovascular: Regular rate, Normal S1, Normal S2, No murmurs, Gallops, Rubs Abdomen: Normal bowel sounds, Soft, No tenderness Neuro: Cranial nerves 3-12 NL Psych/Mental Status: Mental status NL Medications Current Medications Medications Dose Ordered Sig/Kevin Route Start Time Stop Time Status Last Admin Dose Admin Ceftriaxone Sodium 50 ml @ 100 mls/hr DAILY@09 IV 07/26/24 09:00 07/28/24 08:36 100 MLS/HR Acetaminophen/ Hydrocodone Bitart 1 tab Q4HP PRN PO 07/26/24 04:15 07/26/24 21:46 1 TAB Temazepam 15 mg QHSP PRN PO 07/26/24 04:15 Ondansetron HCl 4 mg Q4HP PRN IV 07/26/24 04:15 Acetaminophen 650 mg Q6HP PRN PO 07/26/24 04:15 Morphine Sulfate 2 mg Q6HPRN PRN IV 07/26/24 04:15 07/26/24 20:10 2 MG Sodium Chloride 1,000 ml @ 125 mls/hr Q8H IV 07/26/24 13:15 07/28/24 05:41 125 MLS/HR Tamsulosin HCl 0.4 mg QPM PO 07/27/24 18:00 07/27/24 19:29 0.4 MG Ketorolac Tromethamine 30 mg Q6HPRN PRN IV 07/27/24 07:45 08/01/24 07:44 Laboratory Results Laboratory Tests 07/26/24 04:40 07/27/24 05:34 Urinalysis Test 07/26/24 02:30 Urine Color Light-yellow (Yellow) Urine Clarity Clear (Clear) Urine pH 8.0 (5.0-9.0) Urine Specific [place] 1.020 (1.001-1.035) Urine Protein Negative (Negative) Urine Ketones 3+ (Negative) H Urine Blood 1+ /uL (Negative) H Urine Nitrite Negative (Negative) Urine Bilirubin Negative (Negative) Urine Urobilinogen Normal mg/dL (Negative) Urine Leukocyte Esterase 2+ /uL (Negative) Urine RBC 22 /hpf (0 - 4) Urine Microscopic WBC 5 /HPF (0-5) Urine Squamous Epithelial Cells Few /hpf (<5) Urine Bacteria Few /hpf (None Seen) H Urine Mucus Few (None Seen) Urine Glucose Normal mg/dL (Normal) Urine Test Negative (Negative) Labs and/or images reviewed: Labs reviewed by me Assessment/Plan Assessment/Plan 34-year-old female who initially presented to the hospital with a fevers chills nausea and vomiting and right flank pain found to have 1. Sepsis secondary to right pyelonephritis 2. Acute pyelonephritis right side 3. Right obstructive uropathy with the ureteric stone with hydronephrosis 4. Leukocytosis likely reactive secondary to sepsis 5. Chronic marijuana use 6. Positive amphetamine and 7. Acute kidney injury suspected secondary to vasomotor nephropathy 8. Morbid obesity classIII -IV fluids, encourage liquids, Flomax-, urology consultation Follow up urine culture, IV antibiotics Continuing current management This medical document was created using an electronic medical record system with [employer] computerized dictation system. Although this document has been carefully reviewed, there may still be some phonetic and typographical errors. These areas are purely typographical due to imperfections of the software programs, and do not reflect any compromise in the patient's medical care. Plan discussed with: Patient Date of Service: Jul 28, 2024 Billing Provider: ROLAN CAREY MD Common Visit Codes: [id number] INP/OBS CARE(HIGH) ROLAN CAREY MD Jul 28, 2024 11:07
[2024-07-29 01:00] VITALS: BP 100/71; PULSE 59; RESP 17; TEMP 97.8; O2SAT 95
[2024-07-29 05:00] VITALS: BP 115/81; PULSE 60; RESP 17; TEMP 97.6; O2SAT 96
[2024-07-29 08:30] VITALS: BP 107/59; PULSE 69; RESP 18; TEMP 97.6; O2SAT 97
[2024-07-29] MEDS: ACETAMINOPHEN 325 MG TAB PO PRN (09:52)
[2024-07-29] MEDS ORDERED: HYDR-4902 PO (12:04)
[2024-07-29] MEDS ORDERED: LEVO500T91 PO (12:04)
--- NOTE | 2024-07-29 12:06 | DVHDS2 ---
Discharge Summary Date of Admission Jul 26, 2024 at 04:05 Date of Discharge: Jul 29, 2024 Admitting Diagnosis 1. Sepsis secondary to right pyelonephritis 2. Acute pyelonephritis right side 3. Right obstructive uropathy with the ureteric stone with hydronephrosis 4. Leukocytosis likely reactive secondary to sepsis 5. Chronic marijuana use 6. Positive amphetamine and marijuana 7. Acute kidney injury suspected secondary to vasomotor nephropathy 8. Morbid obesity classIII Labs/Diagnostic Data: Laboratory Results Test 07/27/24 05:34 07/26/24 04:40 07/26/24 02:30 07/26/24 02:04 White Blood Count 9.5 10^3/uL (4.4-10.8) Red Blood Count 4.63 10^6/uL (4.0-5.20) Hemoglobin 13.4 g/dL (12.2-16.2) Hematocrit 39.4 % (36.0-46.0) Mean Corpuscular Volume 85.1 fL (80.0-100.0) Mean Corpuscular Hemoglobin 28.9 pg (28.0-32.0) Mean Corpuscular Hemoglobin Concent 34.0 g/dL (32.0-36.0) Red Cell Distribution Width 16.0 % (11.8-14.3) Platelet Count 353 10^3/uL (140-450) Mean Platelet Volume 7.4 fL (6.9-10.8) Neutrophils (%) (Auto) 72.7 % (37.0-80.0) Lymphocytes (%) (Auto) 13.8 % (10.0-50.0) Monocytes (%) (Auto) 12.0 % (0.0-12.0) Eosinophils (%) (Auto) 1.2 % (0.0-7.0) Basophils (%) (Auto) 0.3 % (0.0-2.0) Neutrophils # (Auto) 6.9 10 ^3/uL (1.6-8.6) Lymphocytes # (Auto) 1.3 10 ^3/uL (0.4-5.4) Monocytes # (Auto) 1.1 10 ^3/uL (0-1.3) Eosinophils # (Auto) 0.1 10 ^3/uL (0-0.8) Basophils # (Auto) 0 10 ^3/uL (0-0.2) Nucleated Red Blood Cells 0.1 % Sodium Level 137 mmol/L (136-145) Potassium Level 3.7 mmol/L (3.5-5.1) Chloride Level 103 mmol/L (98-107) Carbon Dioxide Level 23 mmol/L (20-31) Anion Gap 11 (5-15) Blood Urea Nitrogen 12 mg/dL (9-23) Creatinine 1.25 mg/dL (0.550-1.02) Glomerular Filtration Rate Calc 58 mL/min (>90) BUN/Creatinine Ratio 9.6 (10.0-20.0) Serum Glucose 129 mg/dL (74-106) Calcium Level 9.6 mg/dL (8.7-10.4) Urine Color Light-yellow (Yellow) Urine Clarity Clear (Clear) Urine pH 8.0 (5.0-9.0) Urine Specific [place] 1.020 (1.001-1.035) Urine Protein Negative (Negative) Urine Ketones 3+ (Negative) Urine Blood 1+ /uL (Negative) Urine Nitrite Negative (Negative) Urine Bilirubin Negative (Negative) Urine Urobilinogen Normal mg/dL (Negative) Urine Leukocyte Esterase 2+ /uL (Negative) Urine RBC 22 /hpf (0 - 4) Urine Microscopic WBC 5 /HPF (0-5) Urine Squamous Epithelial Cells Few /hpf (<5) Urine Bacteria Few /hpf (None Seen) Urine Mucus Few (None Seen) Urine Glucose Normal mg/dL (Normal) Urine Test Negative (Negative) Urine Opiates Screen Neg (NEGATIVE) Urine Fentanyl Screen Neg (NEGATIVE) Urine Barbiturates Screen Neg (NEGATIVE) Urine Phencyclidine Screen Neg (NEGATIVE) Urine Amphetamines Screen Pos (NEGATIVE) Urine Benzodiazepines Screen Neg (NEGATIVE) Urine Cocaine Screen Neg (NEGATIVE) Urine Cannabinoids Screen Pos (NEGATIVE) Total Bilirubin 0.7 mg/dL (0.2-1.0) Aspartate Amino Transferase (AST) 14 U/L (13-40) Alanine Aminotransferase (ALT) 17 U/L (7-40) Alkaline Phosphatase 97 U/L (46-116) Total Protein 8.0 g/dL (5.7-8.2) Albumin 4.8 g/dL (3.2-4.8) Lipase 30 U/L (12-53) Other Laboratory Tests 07/27/24 05:34 07/26/24 04:40 Brief Hx & Hospital Course: This is a 34 year old female come to emergency department because of flank pain. The patient has one day history of right sharp pain at the flank area associated with nausea, vomiting. She also had chills. No dysuria or hematuria. The CT scan abdomen pelvis showed: Moderate right hydroureteronephrosis secondary to a partially obstructing distal ureteral calculus just proximal to the level of the ureterovesicular junction. Urology was consulted. IV fluid was given. Recommend expulsive measures and pain control. The patient subsequently doing better. No flank pain. I am going to discharge her home. Advised her to follow up with Dr. Robles, urologist per schedule. Follow up with her primary care physician 1-2 weeks. Advised to increase intake of fluid especially water. Activity as tolerated. Diet per home diet. Physical exam: HEENT: Normocephalic atraumatic pupils equal react to light and accommodation. Extraocular muscles intact, conjunctiva pink, oropharynx moist, no thrush, no exudate. Lymphatic: No lymphadenopathy Cardiovascular exam: S1, S2 was heard. No murmurs, rubs, gallops Lung: Clear on auscultation bilaterally, no wheeze, rale, rhonchi. GI: Abdominal soft, nondistended, nontenderness, positive bowel sounds. Extremity: No crepitus, cyanosis, edema. Pedal pulses present bilateral. Full range of motion. Skin: Normal turgor, no rash. Psych: Alert, oriented x3. Neurology: No focal deficits, cranial nerve II to XII grossly intact. Condition at Discharge: Stable Final Diagnosis/Problems List 1. Sepsis secondary to right pyelonephritis 2. Acute pyelonephritis right side 3. Right obstructive uropathy with the ureteric stone with hydronephrosis 4. Leukocytosis likely reactive secondary to sepsis 5. Chronic marijuana use 6. Positive amphetamine and marijuana 7. Acute kidney injury suspected secondary to vasomotor nephropathy 8. Morbid obesity classIII Discharge Disposition: Home Discharge Instruct/Medications Diet: Regular Activity: No Restrictions, As Tolerated Follow Up/Referral: pcp 1-[address] Robles, urology per schedule Medications: see med list Discharge Statement: "Patient was advised to return to the ER or call 911 if any headaches, dizziness, shortness of breath, chest pain, abdominal pain, bleeding, fevers, or worsening of medical condition. Patient was counseled about treatment plan, medications, possible side effects, patientverbalized understanding. All questions were answered to the best of my ability. This discharge took greater then 30 minutes in planning, reviewing documentation, counseling the patient, and discussing with other team members." ASSESSMENT ASSESSMENT Assessment obstructive uropathy Date of Service: Jul 29, 2024 Billing Provider: ROLAN CAREY MD Common Visit Codes: [id number] DISCH DAY >30min ROLAN CAREY MD Jul 29, 2024 12:06
[2024-07-29 12:40] VITALS: BP 132/56; PULSE 60; RESP 18; TEMP 97.8; O2SAT 97
[2024-07-29 12:43] VITALS: TEMP 36.4
== END 2024-07-29 14:00 | disposition home or self-care (01) | DRG 720 ==
LOC: ER 01:04 → EDBD 01:04 → OVERFLOW 04:05 → WEST WING 04:40
PROVIDERS: ADMIT Internal Medicine; ATTEND Internal Medicine
DX: A41.9 Sepsis, unspecified organism (principal); N17.0 Acute kidney failure with tubular necrosis; N13.6 Pyonephrosis; N20.1 Calculus of ureter; F12.90 Cannabis use, unspecified, uncomplicated; E66.01 Morbid (severe) obesity due to excess calories; Z68.41 Body mass index [BMI] 40.0-44.9, adult; Z79.899 Other long term (current) drug therapy
CPT/HCPCS: 36415; 74176; 76775; 80048; 80053; 80307; 81001; 81025; 83690; 85025; 96361; 96374; 96375; G0378; J1885; J2405